=== PATIENT | male | born 2000 | race Hispanic/Latino ===

== ENCOUNTER 2025-06-11 16:48 | Emergency (ER) | payer SELFPAY | END 2025-06-11 17:21 | disposition home or self-care (01) | LOC: CSHERS 16:48 | DX: S50.02XA Contusion of left elbow, initial encounter (principal); F17.290 Nicotine dependence, other tobacco product, uncomplicated; X58.XXXA Exposure to other specified factors, initial encounter | CPT/HCPCS: 99283 ==